=== PATIENT | female | born 1990 ===

== ENCOUNTER → 2018-04-22 10:32 | Outpatient (CLI) | payer OTHER, SELFPAY | PROVIDERS: Visit Provider Physician Assistant | DX: L02.91 Cutaneous abscess, unspecified (principal) | CPT/HCPCS: 87070; 87075; 87205 ==

== ENCOUNTER 2020-03-07 07:14 | Emergency (ER) | payer OTHER, SELFPAY ==
[2020-03-07 07:22] VITALS: BP 157/99; PULSE 103; RESP 18; TEMP 36.4; O2SAT 97; BMI 39.3
[2020-03-07] MEDS: cephALEXin 250 MG CAPSULE 500 MG PO (08:04)
[2020-03-07] MEDS: predniSONE 20 MG TABLET 60 MG PO (08:04)
[2020-03-07] MEDS: diphenhydrAMINE 25 MG TABLET PO (08:04)
--- NOTE | 2020-03-07 08:06 | ED.EXTPRO ---
HPI - Extremity Problem General Chief complaint: Extremity Problem,Nontraumatic Stated complaint: right swollen fingertips numb/tingling Source: patient Mode of arrival: Ambulatory Limitations: no limitations History of Present Illness HPI Narrative: CC: swollen right hand HPI: Patient is a 29-year-old female who states that she has an allergy to [place] is. She was bitten by an unknown insect on the dorsum of her right hand 2 nights ago. She has had diffuse progressive swelling of the hand with mild discomfort feeling warm and slightly erythematous. One of the fingertips had tingling in and she became alarmed. She admits to a family history of rheumatoid arthritis. She states this has happened to her before and she has been prescribed antibiotics and steroids. She denies any other injury. She denies being a diabetic or having high blood pressure. Or asthma. She periodically smoke cigarettes. She has had no shortness of breath cough wheezing chest pain racing of her heart. She has had no headache no nausea or vomiting. She admits to being right-hand dominant. That is what is bothering her since this involves her right hand. Related Data Home Medications Medication Instructions Recorded Confirmed levonorgestrel-ethinyl estrad 1 tab PO QDAY #0 04/07/13 [Lutera (28)] Previous Rx's Medication Instructions Recorded cephalexin [Keflex] 500 mg PO QID #20 cap 03/07/20 diphenhydramine HCl [Benadryl] 25 mg PO Q6H PRN #20 cap 03/07/20 prednisone 40 mg PO DAILY #8 tab 03/07/20 Allergies Allergy/AdvReac Type Severity Reaction Status Date / Time No Known Drug Allergies Allergy Verified 03/07/20 07:26 Review of Systems Review of Systems Narrative: Her review of systems were all negative except for those mentioned in the history of present illness. Patient History Social History Smoking Status: Current every day smoker Smoking Status: Current every day smoker tobacco type: cigarettes alcohol intake frequency: 0-2 drinks per day Alcohol type: wine Exam Narrative Exam Narrative: PHYSICAL EXAM: CONSTITUTIONAL: Awake, Alert, Oriented, Coherent, Cooperative in NAD. Does not appear toxic or ill. The patient is arm anxious HEAD: AT/NC EENT: PERRL, FROM of eyes, SPINE: Palpationof the cervical, Thoracic, Lumbar or Sacral spine reveals no gross deformity or tenderness. No CVA tenderness. THORAX: No deformity, retractions, chest wall tenderness. LUNGS: Clear, symmetrical breath sounds without respiratory distress. HEART: Normal heart tones, regular rhythm and rate without murmur. ABDOMEN: Soft, non-tender. EXTREMITIES: Patient's right hand dorsally is diffusely swollen. The patient has a indurated lump that looks like an insect bite similar to mosquito bite over the dorsum of her right hand between the right index and middle finger. She is more tender to palpation over the metacarpal phalangeal joint of the index and middle finger. She has diffuse swelling of the entire hand and fingers. She is able to flex extend and abduct abduct her fingers. Capillary refill and sensation are within normal limits. SKIN: No rash, bruising, petechiae or purpura. NEURO: Awake, alert, oriented, conversive, cranial nerves II-XII are symmetrical , moves all 4 extremities and is ambulatory. Initial Vital Signs Initial Vital Signs: Vital Signs Temperature 97.5 F L 03/07/20 07:22 Pulse Rate 103 H 03/07/20 07:22 Respiratory Rate 18 03/07/20 07:22 Blood Pressure 157/99 H 03/07/20 07:22 Pulse Oximetry 97 03/07/20 07:22 Course Orders Ordered: Discontinued Medications Cephalexin HCl (Keflex) 500 mg PO NOW ONE Stop: 03/07/20 07:56 Last Admin: 03/07/20 08:04 Dose: 500 mg Documented by: KYRIE Diphenhydramine HCl (Benadryl) 25 mg PO NOW ONE Stop: 03/07/20 07:56 Last Admin: 03/07/20 08:04 Dose: 25 mg Documented by: KYRIE Prednisone (Deltasone) 60 mg PO NOW ONE Stop: 03/07/20 07:56 Last Admin: 03/07/20 08:04 Dose: 60 mg Documented by: KYRIE Vital Signs Vital signs: Vital Signs - 8 hr 03/07/20 07:22 03/07/20 08:39 Temperature 97.5 F L Pulse Rate 103 H 77 Respiratory Rate 18 16 Blood Pressure 157/99 H 138/94 H Pulse Oximetry 97 98 Discharge Plan Departure Patient Disposition: Home Clinical Impression: Localized swelling on left hand Allergic reaction Qualifiers: Encounter type: initial encounter Qualified Code(s): T78.40XA - Allergy, unspecified, initial encounter Insect bite Qualifiers: Encounter type: initial encounter Site of insect bite: hand Laterality: left Qualified Code(s): S60.562A - Insect bite (nonvenomous) of left hand, initial encounter Discharge Date/Time: 03/07/20 08:43 Instructions: DI for Cellulitis -- Adult, DI for Insect Allergy Activity Restrictions/Additional Instructions: 1. Keep hand elevated. Continue to apply ice/ cold compresses to your right hand for 20-30 minutes or as long as tolerated every 2-3 hours for the next 24-48 hours. 2. Continue to take your normal Claritin. You can also take Benadryl 25 mg every 6 hours as needed for continued swelling itching or burning of the hand. 3. Take the prednisone as directed for the next 4 days starting tomorrow. 4. Take the Keflex as prescribed. 5. For any pain and discomfort you can take 2-3, 200 mg ibuprofen tablets every 6 hours as needed. 6. If not better you need to be rechecked in 48-72 hours. Follow-up with your primary care physician. 7. If you develop fever, worsening swelling of your hand, shortness of breath, wheezing, dizziness, feeling faint or passing-out you need to return to the emergency department. Prescriptions: New cephalexin [Keflex] 500 mg capsule 500 mg PO QID Qty: 20 RF: 0 prednisone 20 mg tablet 40 mg PO DAILY Qty: 8 RF: 0 diphenhydramine HCl [Benadryl] 25 mg capsule 25 mg PO Q6H PRN (Reason: allergic reaction) Qty: 20 RF: 0 No Action levonorgestrel-ethinyl estrad [Lutera (28)] 1 EACH tablet 1 tab PO QDAY Qty: 0 RF: 0
[2020-03-07 08:39] VITALS: BP 138/94; PULSE 77; RESP 16; O2SAT 98
== END 2020-03-07 08:43 | disposition home or self-care (01) ==
PROVIDERS: Emergency Provider Emergency Medicine
DX: T78.40XA Allergy, unspecified, initial encounter (principal); S60.562A Insect bite (nonvenomous) of left hand, initial encounter
CPT/HCPCS: 99282; 99283

== ENCOUNTER → 2020-11-10 08:21 | Outpatient (CLI) | payer OTHER, SELFPAY ==
[2020-11-10] MEDS: COVID-19 VACC, Ad26(JANSSEN)/PF 0.5 ML IM (08:33)
== END ==
PROVIDERS: Visit Provider Internal Medicine
DX: Z23 Encounter for immunization (principal)
CPT/HCPCS: 0031A; 91303

== ENCOUNTER → 2021-01-12 08:23 | Outpatient (CLI) | payer OTHER, SELFPAY ==
[2021-01-12 09:12] LABS: Hematocrit 42.9 % (36-46); Hemoglobin 14.4 g/dL (12.0-16.0); Mean Corpuscular HGB Conc 33.6 % (30-36); Mean Corpuscular Hemoglobin 29.5 PG (26-34); Mean Corpuscular Volume 87.9 fL (80-100); Platelet Count 289 X10^3/uL (150-400); Red Blood Cell Count 4.88 X10^6/uL (4.0-5.2); Red Cell Distribution Width 13.5 % (11.6-14.8); White Blood Cell Count 11.8 X10^3/uL (4.5-11.0)
[2021-01-12 09:40] LABS: Alanine Aminotransferase 21 IU/L (<35); Albumin 4.1 g/dL (3.5-5.0); Albumin Globulin Ratio 1.3 (1.0-2.8); Alkaline Phosphatase 70 U/L (38-126); Aspartate Aminotransferase 23 IU/L (14-36); BUN Creatinine Ratio 14.3 (6-22); Bilirubin Total 0.3 mg/dL (0.2-1.3); Blood Urea Nitrogen 9 mg/dL (7-17); Calcium 9.3 mg/dL (8.4-10.2); Carbon Dioxide 23 mmol/L (22-32); Chloride 107 mmol/L (98-107); Cholesterol 223 mg/dL (140-199); Estimated Glomerular Filt Rate > 60.0 mL/min (>60); Globulin 3.1 g/dL (1.7-4.1); Glucose 96 mg/dL (70-100); HDL Cholesterol 46 mg/dL (40-60); HEMOLYSIS < 15 (0-50); LDL Cholesterol Calculated 154 mg/dL (<100); Potassium 4.2 mmol/L (3.4-5.1); Sodium 137 mmol/L (137-145); Total Protein 7.2 g/dL (6.3-8.2); Triglycerides 114 mg/dL (35-150)
[2021-01-12 10:10] LABS: Vitamin D 25 Hydroxy (D3) 19.5 ng/mL (30.0-100.0)
[2021-01-12 10:21] LABS: TSH w/ Reflex to FT4 2.31 uIU/mL (0.47-4.68)
== END ==
PROVIDERS: PCP Registered Nurse Diabetes Educator; Referring Provider Registered Nurse Diabetes Educator; Visit Provider Registered Nurse Diabetes Educator
DX: R53.83 Other fatigue (principal); E28.2 Polycystic ovarian syndrome
CPT/HCPCS: 36415; 80053; 80061; 82306; 84443; 85027

== ENCOUNTER → 2022-11-13 15:17 | Outpatient (CLI) | payer OTHER, SELFPAY | PROVIDERS: PCP Registered Nurse Diabetes Educator; Visit Provider Nurse Practitioner Family | DX: J02.9 Acute pharyngitis, unspecified (principal) | CPT/HCPCS: 87070 ==

== ENCOUNTER → 2023-04-27 09:36 | Outpatient (CLI) | payer OTHER, SELFPAY | PROVIDERS: PCP Registered Nurse Diabetes Educator; Visit Provider Physician Assistant | DX: L03.90 Cellulitis, unspecified (principal) | CPT/HCPCS: 87070; 87075; 87205 ==